=== PATIENT | female | born 1995 | race Caucasian/White ===

== ENCOUNTER 2017-12-10 09:10 | Day surgery (SDC) | payer OTHER ==
[~2017-12-10 09:10] MED LIST: BUPIVACAINE HCL 0.75% INJ/PF (7.5 MG/1 ML) 10 ML SDV OS PRN; CHONDR SU A NA/HYALUR INTRAOC KIT (SURGICARE) ONE; EPINEPHRINE INJ/PF 1 MG/1 ML AMPULE ONE; KETOROLAC TROMETHAMINE 0.45% 4 DROP/0.4 ML DROPERETTE OS PRN; LIDOCAINE 1% INJ-PF (10 MG/ML) 30 ML SDV ONE; LIDOCAINE 4% INJ/PF (40 MG/ML) 5 ML AMPUL OS PRN; TRYPAN BLUE 0.06 % OPH SOLN 0.5 ML DISP.SYRIN ONE
[2017-12-10] MEDS: TROPICAMIDE 1% OPH SOLN 3 ML OS PRN ×3 (09:19→09:48)
[2017-12-10] MEDS: CYCLOPENTOLATE 0.2%/PHENYLEPHRINE 1% OPH SOLN 2 ML OS PRN ×3 (09:19→09:48)
[2017-12-10] MEDS: BESIFLOXACIN HCL 0.6% OPH SUSP 5 ML BOTTLE OS PRN ×4 (09:20→10:15)
[2017-12-10] MEDS: TETRACAINE HCL 0.5% OPH SOLN 0.6 ML DROPERETTE OS PRN ×2 (09:21→09:48)
[2017-12-10] MEDS ORDERED: MIDAZOLAM 2 MG/2 ML INJ ONE ×2 (09:33→09:41)
[2017-12-10] MEDS ORDERED: FENTANYL CITRATE INJ/PF 100 MCG/2 ML AMPUL ONE (09:33)
[2017-12-10] MEDS ORDERED: ONDANSETRON HCL INJ/PF 4 MG/2 ML SDV ONE (09:33)
--- NOTE | 2017-12-10 10:44 | [facility] OPERATIVE REPORT E ---
[facility] Operative Report NAME: ROLLY CALVERT AGE: 22Y DATE OF SURGERY: 12/10/2017 ROOM: PREOPERATIVE DIAGNOSIS: Cataract, left eye. POSTOPERATIVE DIAGNOSIS: Cataract, left eye. PROCEDURE PERFORMED: Phacoemulsification with posterior chamber intraocular lens, left eye. SURGEON: NALLELY PARSON M.D. ANESTHESIA: Topical with MAC. INDICATIONS FOR SURGERY: Difficulty reading road signs and difficulty with night driving. Best corrected visual acuity 20/60. PROCEDURE: The patient was brought to the Operating Room and placed on the operative table. Following tetracaine drops, topical anesthesia was administered. This consisted of instrument wipe pledgets soaked in a solution of 4% Xylocaine mixed with 0.75% Marcaine in a 1:2 ratio. A 2 x 1 cm pledget was placed in the superior fornix. A 1 x 1 cm pledget was placed in the inferior fornix. The eye was patched shut for 5 minutes. The patch was removed. The eye was sterilely prepped and draped in the usual manner. Lid speculum was placed in the eye. The pledgets were removed. 4-0 black silk sutures were placed around the superior and the inferior rectus muscles to be used as traction. A conjunctival peritomy was made at the 10 o'clock position. Hemostasis was obtained with bipolar cautery. A posterior limbal groove was created using a crescent knife and dissected anteriorly towards the cornea. A sharp point blade was used to create a paracentesis site at the 2 o'clock position. A 2.4 mm keratome was used to enter the anterior chamber through the groove. Viscoelastic was injected into the anterior chamber. An anterior capsulotomy was performed using Utrata forceps in a capsulorrhexis fashion. Hydrodissection and hydrodelineation were performed. Phacoemulsification was performed in [id number] technique. A total of 0.68 CDE phaco time was used. Following this, the I/A unit was used to remove residual cortex. Viscoelastic was injected into the capsular bag. Intraocular lens model ZCB00, 18 diopters, serial number [id number] was placed in the capsular bag. The I/A unit was used to remove residual viscoelastic. The wound was seen to be watertight under high and low pressure, and no sutures were placed. The intraocular lens was well centered. The pressure was adjusted in the eye to normal pressure. The 4-0 black silk sutures and lid speculum were removed. The eye was shielded after Besivance drops were placed. The patient tolerated the procedure well and was sent to the Recovery Room in good condition. Following the incision, a syringe with dye was injected into the anterior chamber with an air bubble being placed prior to this. DICTATING PHYSICIAN: NALLELY PARSON M.D. [id number] PHY#: [id number] ID: [id number] JOB#: [id number] ACCT: [id number] cc:NALLELY PARSON M.D. >
--- NOTE | 2017-12-10 10:45 | [facility] DISCHARGE SUMMARY E ---
[facility] Discharge Summary NAME: ROLLY CALVERT AGE: 22Y ADMITTED: 12/10/2017 DISCHARGED: 12/10/2017 HOSPITAL COURSE: The patient is a 22-year-old lady who underwent uneventful cataract extraction with intraocular lens implant left eye on 12/10/2017. She will be discharged to home. She is instructed to resume preoperative medications, take Tylenol as needed for discomfort, to keep her eye shielded, to use Besivance, Durezol, and Ilevro at 3 p.m. and 8 p.m., and to follow up in my office in 1 day. DICTATING PHYSICIAN: NLALELY PARSON M.D. [id number] PHY#: [id number] ID: [id number] JOB#: [id number] ACCT: [id number] cc:NALLELY PARSON M.D. >
== END 2017-12-10 10:58 | disposition home or self-care (01) ==
LOC: SC 09:10
PROVIDERS: ATTEND Ophthalmology
DX: H25.813 Combined forms of age-related cataract, bilateral (principal); E10.36 Type 1 diabetes mellitus with diabetic cataract; Z79.4 Long term (current) use of insulin; Z79.84 Long term (current) use of oral hypoglycemic drugs
CPT/HCPCS: 66984; 82962; V2632; J2250; J3490 ×5; J0171; J3010; J2405; 142

== ENCOUNTER 2019-11-15 07:53 | Day surgery (SDC) | payer BC, OTHER ==
[~2019-11-15 07:53] MED LIST changes: +BUPIVACAINE HCL 0.75% INJ/PF (7.5 MG/1 ML) 10 ML SDV OD PRN; -BUPIVACAINE HCL 0.75% INJ/PF (7.5 MG/1 ML) 10 ML SDV OS PRN; +KETOROLAC TROMETHAMINE 0.45% 4 DROP/0.4 ML DROPERETTE OD PRN; -KETOROLAC TROMETHAMINE 0.45% 4 DROP/0.4 ML DROPERETTE OS PRN; +LIDOCAINE 4% INJ/PF (40 MG/ML) 5 ML AMPUL OD PRN; -LIDOCAINE 4% INJ/PF (40 MG/ML) 5 ML AMPUL OS PRN; -TRYPAN BLUE 0.06 % OPH SOLN 0.5 ML DISP.SYRIN ONE
[2019-11-15] MEDS: TETRACAINE HCL 0.5% OPH SOLN 4 ML OD PRN ×3 (08:31→09:02)
[2019-11-15] MEDS: BESIFLOXACIN HCL 0.6% OPH SUSP 5 ML BOTTLE OD PRN ×4 (08:32→09:23)
[2019-11-15] MEDS: CYCLOPENTOLATE 0.2%/PHENYLEPHRINE 1% OPH SOLN 2 ML OD PRN ×3 (08:32→08:52)
[2019-11-15] MEDS: TROPICAMIDE 1% OPH SOLN 15 ML OD PRN ×3 (08:32→08:52)
[2019-11-15] MEDS ORDERED: MIDAZOLAM 2 MG/2 ML INJ ONE (08:34)
[2019-11-15] MEDS ORDERED: FENTANYL CITRATE INJ/PF 100 MCG/2 ML AMPUL ONE (08:35)
[2019-11-15] MEDS: DORZOLAMIDE HCL 2%/TIMOLOL MALEAT 0.5% OPH SOLN 10 ML OD PRN ×2 (09:23)
--- NOTE | 2019-11-15 09:31 | Operative Report ---
Operative Report-[facility] Operative Report: DATE OF SURGERY: 11/15/2019 PREOPERATIVE DIAGNOSIS: CATARACT, RIGHT EYE. POSTOPERATIVE DIAGNOSIS: CATARACT, RIGHT EYE. PROCEDURE PERFORMED: PHACOEMULSIFICATION WITH POSTERIOR CHAMBER INTRAOCULAR LENS, RIGHT EYE. Intraocular Lens Model : ZCBOO 20.5 Total Phaco Time: 13 seconds SURGEON: NALLELY PARSON MD ANESTHESIA: TOPICAL WITH MAC. INDICATIONS FOR SURGERY:Difficulty reading words on TV and glare. PROCEDURE: The patient was brought to the Operating Room and placed on the operative table. Following tetracaine drops, topical anesthesia was administered. This consisted of instrument wipe pledgets soaked in a solution of 4% Xylocaine mixed with 0.75% Marcaine in a 1:2 ratio. A 2 x 1 cm pledget was placed in the superior fornix. A 1 x 1 cm pledget was placed in the inferior fornix. The eye was patched shut for 5 minutes. The patch was removed. The eye was sterilely prepped and draped in the usual manner. Lid speculum was placed in the eye. The pledgets were removed. 4-0 black silk sutures were placed around the superior and the inferior rectus muscles to be used as traction. A conjunctival peritomy was made at the 10 o'clock position. Hemostasis was obtained with bipolar cautery. A posterior limbal groove was created using a crescent knife and dissected anteriorly towards the cornea. A sharp point blade was used to create a paracentesis site at the 2 o'clock position. 0.2 cc non preserved Lidocaine was injected into the anterior chamber. A 2.4 mm keratome was used to enter the anterior chamber through the groove. Viscoelastic was injected into the anterior chamber. An anterior capsulotomy was performed using Utrata forceps in a capsulorrhexis fashion. Hydrodissection and hydrodelineation were performed. Phacoemulsification was performed in [id number] technique. Following this, the I/A unit was used to remove residual cortex. Viscoelastic was injected into the capsular bag. The Intraocular lens was placed in the capsular bag. The I/A unit was used to remove residual viscoelastic. The wound was seen to be watertight under high and low pressure, and no sutures were placed. The intraocular lens was well centered. The pressure was adjusted in the eye to normal pressure. The 4-0 black silk sutures and lid speculum were removed. The eye was shielded after Besivance. prednisolone, and Cosopt drops were placed. The patient tolerated the procedure well and was sent to the Recovery Room in good condition.
== END 2019-11-15 09:55 | disposition home or self-care (01) ==
LOC: SC 07:53
PROVIDERS: ATTEND Ophthalmology
DX: H25.11 Age-related nuclear cataract, right eye (principal); E10.9 Type 1 diabetes mellitus without complications; Z79.4 Long term (current) use of insulin
CPT/HCPCS: 66984; 82962; V2632; J2250; J3490 ×6; J0171; J3010; 142

== ENCOUNTER 2020-05-04 09:12 | Inpatient (IN) | payer BC ==
[2020-05-04 10:27] LABS: ABSOLUTE BASOPHILS # (AUTO) 0.1 10^3/uL (0.0-0.2); ABSOLUTE MONOCYTES (AUTO) 0.4 10^3/uL (0.1-1.4); ABSOLUTE NEUT (AUTO) 7.7 10^3/uL (1.7-8.2); BASOPHILS % (AUTO) 0.6 % (0-2); EOSINOPHILS % (AUTO) 0.1 % (0-6); HEMATOCRIT 49.8 % (36.0-47.0); HEMOGLOBIN 16.8 g/dL (12.0-15.5); LYMPHOCYTES % (AUTO) 10.7 % (13-45); MEAN CORPUSCULAR HEMOGLOBIN 32.3 pg (27.0-33.4); MEAN CORPUSCULAR HGB CONC 33.7 g/dL (32.0-36.0); MEAN CORPUSCULAR VOLUME 96 fl (80-97); MONOCYTES % (AUTO) 4.7 % (3-13); PLATELET COUNT 305 10^3/uL (150-450); RED CELL DISTRIBUTION WIDTH 13.4 % (11.5-14.0); SEGMENTED NEUTROPHILS % (AUTO) 83.9 % (42-78); TOTAL CELLS COUNTED % (AUTO) 100 %; WHITE BLOOD COUNT 9.2 10^3/uL (4.0-10.5)
[2020-05-04 10:30] LABS: APPEARANCE,URINE SLIGHTLY-CLOUDY; BILIRUBIN,URINE NEGATIVE (NEGATIVE); COLOR,URINE YELLOW; GLUCOSE, URINE >=500 mg/dL (NEGATIVE); KETONES,URINE 80 mg/dL (NEGATIVE); LEUKOCYTE ESTERASE,URINE TRACE (NEGATIVE); NITRITE,URINE NEGATIVE (NEGATIVE); PROTEIN,URINE 100 mg/dL (NEGATIVE); URINE SPECIFIC GRAVITY 1.025; UROBILINOGEN,URINE NEGATIVE mg/dL (<2.0)
[2020-05-04 10:41] LABS: VENOUS BLOOD BASE EXCESS -23.7 mmol/L; VENOUS BLOOD HCO3 6.7 mmol/L (20-32); VENOUS BLOOD PCO2 28.5 mmHg (35-63)
[2020-05-04 10:42] LABS: VENOUS BLOOD PH 6.99 (7.30-7.42)
[2020-05-04 10:43] LABS: ALBUMIN 5.7 g/dL (3.5-5.0); ALKALINE PHOSPHATASE 116 U/L (38-126); ASPARTATE AMINO TRANSFERASE 28 U/L (14-36); BILIRUBIN,DIRECT 0.5 mg/dL (0.0-0.4); BILIRUBIN,TOTAL 0.6 mg/dL (0.2-1.3); BLOOD UREA NITROGEN 15 mg/dL (7-20); CALCIUM 10.4 mg/dL (8.4-10.2); CHLORIDE 102 mmol/L (98-107); POTASSIUM 5.2 mmol/L (3.6-5.0); TOTAL PROTEIN 10.1 g/dL (6.3-8.2)
[2020-05-04] MEDS ORDERED: NORMAL SALINE 1000 ML 1,000 ML IV ONE ×2 (10:49→11:27)
[2020-05-04] MEDS ORDERED: ONDANSETRON HCL INJ/PF 4 MG/2 ML SDV IV ONE (10:49)
--- NOTE | 2020-05-04 10:50 | ER Document Report ---
ED GI/ - General Chief Complaint: Vomiting Stated Complaint: VOMITING Time Seen by Provider: 05/04/20 10:10 Mode of Arrival: Ambulatory Information source: Patient Notes: 24-year-old female presents to the emergency department history of diabetes mellitus, insulin-dependent. Apparently has developed vomiting during the evening last night. She also complains of some congestion and sore throat. She denies fever, symptoms limited to nausea and no diarrhea. She has had poor control of diabetes with blood sugars running in the 300 range most of the time going to the patient. TRAVEL OUTSIDE OF THE [place] IN LAST 30 DAYS: No - Related Data Allergies/Adverse Reactions: No Known Allergies Allergy (Verified 11/14/19 08:42) Past Medical History - General Information source: Patient - Social History Smoking Status: Unknown if Ever Smoked Family History: Reviewed & Not Pertinent - Past Medical History Cardiac Medical History: Denies: Hx Heart Attack, Hx Hypertension Pulmonary Medical History: Denies: Hx Asthma Neurological Medical History: Denies: Hx Cerebrovascular Accident, Hx Seizures GI Medical History: Denies: Hx Hepatitis, Hx Hiatal Hernia, Hx Ulcer Infectious Medical History: Denies: Hx Hepatitis Past Surgical History: Denies: Hx Hysterectomy, Hx Mastectomy, Hx Open Heart Surgery, Hx Pacemaker Review of Systems - Review of Systems Notes: Constitutional: generalized weakness HENT: +sore throat. Eyes: Negative for visual changes. Cardiovascular: Negative for chest pain. Respiratory: Negative for shortness of breath. Gastrointestinal: + nausea and vomiting Genitourinary: Negative for dysuria. Musculoskeletal: Negative for back pain. Skin: Negative for rash. Neurological: Negative for headaches, weakness or numbness. 10 point ROS negative except as marked above and in HPI. Physical Exam - Vital signs Vitals: Temp Pulse Resp BP Pulse Ox 97.7 F 116 H 16 108/77 100 05/04/20 09:19 05/04/20 09:19 05/04/20 09:19 05/04/20 09:19 05/04/20 09:19 - Notes Notes: PHYSICAL EXAMINATION: Physical Exam: General: Well-nourished ukxc-rcewwemfq-vijv-old female in no acute distress HEENT: NC/AT, pupils equal round and reactive to light, MM moist,nares clear, oropharynx clear, airway patent Neck: supple, no adenopathy, no masses. Good range of motion Lungs: clear, no wheezing, no rales no rhonchi CVS: Regular rate and rhythm no murmur gallop or rub Abdomen: Soft, active, nontender, no masses, no hepatosplenomegaly Ext: No edema, clubbing or cyanosis. Neuro: Alert and responsive, moving all 4 extremities on command, cranial nerves intact, no focal findings Skin: Intact no open lesions, no rash Course - Re-evaluation Re-evalutation: 05/04/20 21:01 Patient was found to be in diabetic ketoacidosis, the lacquer sprayer was contacted and will admit the patient to the ICU for further treatment. IV fluids normal saline bolus 2 L, insulin drip are ordered in the emergency department. I discussed with the patient the need to be admitted to the hospital and she is in agreement with that plan. - Vital Signs Vital signs: Temp Pulse Resp BP Pulse Ox 98.4 F 93 14 101/71 100 05/04/20 19:37 05/04/20 18:00 05/04/20 18:01 05/04/20 18:00 05/04/20 18:01 - Laboratory Result Diagrams: 05/04/20 10:09 05/04/20 19:30 Laboratory results interpreted by me: 05/04/20 05/04/20 05/04/20 10:09 10:09 10:09 Hgb 16.8 H Hct 49.8 H Lymph % (Auto) 10.7 L Seg Neutrophils % 83.9 H VBG pH VBG pCO2 VBG HCO3 Potassium 5.2 H Carbon Dioxide < 5 L* Glucose 405 H* Hemoglobin A1c % Calcium 10.4 H Direct Bilirubin 0.5 H Total Protein 10.1 H Albumin 5.7 H Urine Protein 100 H Urine Glucose (UA) >=500 H Urine Ketones 80 H Urine Blood SMALL H Ur Leukocyte Esterase TRACE H 05/04/20 05/04/20 10:09 10:09 Hgb Hct Lymph % (Auto) Seg Neutrophils % VBG pH 6.99 L* VBG pCO2 28.5 L VBG HCO3 6.7 L Potassium Carbon Dioxide Glucose Hemoglobin A1c % > 14.0 H Calcium Direct Bilirubin Total Protein Albumin Urine Protein Urine Glucose (UA) Urine Ketones Urine Blood Ur Leukocyte Esterase - Diagnostic Test Radiology reviewed: Image reviewed, Reports reviewed Radiology results interpreted by me: 05/04/20 21:03 Chest X-Ray 05/04/20 11:15 IMPRESSION: NO ACUTE RADIOGRAPHIC FINDING IN THE CHEST. - EKG Interpretation by Ms Rate: Tachycardia - EKG interpreted by Dr. Fox: Sinus tachycardia, [id number], DE 156 ms, QT interval 252 ms, normal axis, borderline prolonged QT interval, no acute ST or T wave abnormalities, no ischemic findings, there is no prior EKG to compare. Critical Care Note - Critical Care Note Total time excluding time spent on procedures (mins): 60 - Critical care time spent obtaining history from patient or surrogate, discussions with consultants, development of treatment plan with patient or surrogate, evaluation of patient's response to treatment, examination of patient, ordering and performing treatments and interventions, ordering and review of laboratory studies, re- evaluation of patient's condition, ordering and review of radiographic studies and review of old charts Discharge - Discharge Clinical Impression: Dehydration, Hyperkalemia Diabetic ketoacidosis Qualifiers: Diabetes mellitus type: type 1 Diabetes mellitus complication detail: without coma Qualified Code(s): E10.10 - Type 1 diabetes mellitus with ketoacidosis without coma Condition: Good Disposition: ADMITTED INPATIENT Admitting Provider: Toby (Materials Scheduler) Unit Admitted: ICU
[2020-05-04 10:57] LABS: CARBON DIOXIDE < 5 mmol/L (22-30); GLUCOSE 405 mg/dL (75-110)
[2020-05-04] MEDS ORDERED: NORMAL SALINE 100 ML with INSULIN REGULAR, HUMAN 100 UNIT IV PRN ×4 (11:18→12:05)
[2020-05-04] MEDS ORDERED: GLUCAGON,HUMAN RECOMB 1 MG INJ IM PRN ×2 (11:18→12:30)
[2020-05-04] MEDS ORDERED: DEXTROSE 40% GEL 15 GM TUBE PO PRN ×3 (11:18→12:30)
[2020-05-04] MEDS ORDERED: ACETAMINOPHEN 325 MG TABLET PO ONE (11:18)
[2020-05-04] MEDS ORDERED: DEXTROSE 50%-WATER 25 GM/50 ML DISP.SYRIN IV PRN ×2 (11:18)
[2020-05-04] MEDS ORDERED: INSULIN REG, HUMAN 100 UNIT/ML 3 ML VIAL (PYX) IV ONE (11:22)
--- NOTE | 2020-05-04 11:35 | RADIOLOGY REPORT (SQ) ---
EXAM DESCRIPTION: CHEST SINGLE VIEW IMAGES COMPLETED DATE/TIME: 05/04/2020 11:27 am REASON FOR STUDY: DKA COMPARISON: None. EXAM PARAMETERS: NUMBER OF VIEWS: One view. TECHNIQUE: Single frontal radiographic view of the chest acquired. RADIATION DOSE: NA LIMITATIONS: None. FINDINGS: LUNGS AND PLEURA: No opacities, masses or pneumothorax. No pleural effusion. MEDIASTINUM AND HILAR STRUCTURES: No masses. Contour normal. HEART AND VASCULAR STRUCTURES: Heart normal in size. Normal vasculature. BONES: No acute findings. HARDWARE: None in the chest. OTHER: No other significant finding. IMPRESSION: NO ACUTE RADIOGRAPHIC FINDING IN THE CHEST. TECHNICAL DOCUMENTATION: JOB ID: [id number] 2010 [employer]- All Rights Reserved Reading location - IP/workstation name: [email or web address]
[2020-05-04] MEDS ORDERED: NORMAL SALINE 1000 ML 1,000 ML IV PRN (12:03)
[2020-05-04] MEDS ORDERED: DEXTROSE 50%-WATER SYRINGE 12.5 GM/25 ML DOSE IV PRN (12:30)
[2020-05-04] MEDS ORDERED: DEXTROSE 40% GEL 15 GM TUBE X 2 PO PRN (12:30)
[2020-05-04] MEDS ORDERED: DEXTROSE 50%-WATER SYRINGE 25 GM/50 ML DOSE IV PRN (12:30)
[2020-05-04 12:56] LABS: A TYPE INFLUENZA AG NEGATIVE (NEGATIVE); B INFLUENZA AG NEGATIVE (NEGATIVE)
[2020-05-04 13:52] LABS: URINE AMPHETAMINES SCREEN NEGATIVE; URINE BARBITURATES SCREEN NEGATIVE; URINE BENZODIAZEPINES SCREEN NEGATIVE; URINE COCAINE SCREEN NEGATIVE; URINE MARIJUANA (THC) SCREEN NEGATIVE; URINE METHADONE SCREEN NEGATIVE; URINE PHENCYCLIDINE SCREEN NEGATIVE
[2020-05-04] MEDS: HEPARIN SOD (PORCINE) 5,000 UNIT/ML 1 ML VIAL SUBCUT SCH ×2 (14:59→22:33)
[2020-05-04 15:27] LABS: ALBUMIN 4.3 g/dL (3.5-5.0); ALKALINE PHOSPHATASE 82 U/L (38-126); ASPARTATE AMINO TRANSFERASE 24 U/L (14-36); BILIRUBIN,DIRECT 0.4 mg/dL (0.0-0.4); BILIRUBIN,TOTAL 0.4 mg/dL (0.2-1.3); TOTAL PROTEIN 7.3 g/dL (6.3-8.2)
--- NOTE | 2020-05-04 16:12 | EKG REPORT ---
SEVERITY:- BORDERLINE ECG - SINUS TACHYCARDIA BORDERLINE PROLONGED QT INTERVAL : Confirmed by: Justin Martínez MD 04-May-2020 16:11:56
[2020-05-04] MEDS: ACETAMINOPHEN 325 MG TABLET PO PRN ×2 (16:31→19:46)
[2020-05-04 17:08] LABS: BLOOD UREA NITROGEN 11 mg/dL (7-20); CALCIUM 8.5 mg/dL (8.4-10.2); CHLORIDE 110 mmol/L (98-107); GLUCOSE 202 mg/dL (75-110); POTASSIUM 4.4 mmol/L (3.6-5.0)
[2020-05-04 17:25] LABS: CARBON DIOXIDE < 5 mmol/L (22-30)
[2020-05-04] MEDS: POTASSI CL 20 MEQ/D5-1/2NS 1L 1,000 ML IV PRN ×2 (18:02→22:34)
--- NOTE | 2020-05-04 19:28 | CRITICAL CARE ADMISSION REPORT ---
HPI Date:: 05/04/20 Time:: 12:08 Reason for ICU Reason:: Diabetic ketoacidosis Admission Date/Time & PCP: Admission Date/Time: Primary Care Provider: ZINA WITT HPI: This 24-year-old female non-smoker with type 1 diabetes presents to the emergency department with complaints of acute onset severe nausea and vomiting and dehydration. She is a type I diabetic, who reports adherence to prescribed therapy. On the other hand, she reports that she has had a long history of having difficulties with getting her sugars under control. They tend to run high. She denies any known sick contacts. 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 Denies fever, chills. She denies cough or sputum production. She de nies shortness of breath. She does endorse tachycardia and exertional dyspnea, however. In the emergency department, laboratory evaluation was compatible with diabetic ketoacidosis. History obtained from:: Patient - Diagnosis/Plan (1) Diabetic ketoacidosis Qualifiers: Diabetes mellitus type: type 1 Diabetes mellitus complication detail: without coma Qualified Code(s): E10.10 - Type 1 diabetes mellitus with ketoacidosis without coma Is this a current diagnosis for this admission?: Yes Plan: IV fluids start with normal saline at 250 mL/h). Serial BMP, magnesium, phosphorus. Check lipase. Insulin infusion. Every hour Accu-Cheks. Hold home diabetes regimen. (2) Refractory nausea and vomiting Is this a current diagnosis for this admission?: Yes Plan: Zofran as needed (3) Dehydration Is this a current diagnosis for this admission?: Yes (4) Hyperkalemia Is this a current diagnosis for this admission?: Yes Past Medical History Cardiac Medical History: Denies: Myocardial Infarction, Hypertension Pulmonary Medical History: Denies: Asthma Neurological Medical History: Denies: Seizures Endocrine Medical History: Reports: Diabetes Mellitus Type 1 GI Medical History: Denies: Hepatitis, Hiatal Hernia Hematology: Reports: Anemia Denies: Sickle Cell Disease Past Surgical History Past Surgical History: Denies: Amputation, Hysterectomy, Mastectomy, Pacemaker Social/Family History - Social History Smoking Status: Never Smoker - Medication/Allergies Home Medications: Insulin Degludec [Tresiba Flextouch U-100] 30 unit SQ QAM 12/09/17 Liraglutide [Saxenda] 1.2 mg SQ DAILY 11/14/19 Insulin Lispro-Aabc [Lyumjev Kwikpen U-200] 0 unit SQ .SLIDING SCALE 05/04/20 Allergies/Adverse Reactions: No Known Allergies Allergy (Verified 11/14/19 08:42) Review of Systems Constitutional: ABSENT: chills, fever(s), headache(s), weight gain, weight loss Eyes: ABSENT: visual disturbances Ears: ABSENT: hearing changes Cardiovascular: ABSENT: chest pain, dyspnea on exertion, edema, orthropnea, palpitations Respiratory: ABSENT: cough, hemoptysis Gastrointestinal: ABSENT: abdominal pain, constipation, diarrhea, hematemesis, hematochezia, nausea, vomiting Genitourinary: ABSENT: dysuria, hematuria Musculoskeletal: ABSENT: joint swelling Integumentary: ABSENT: rash, wounds Neurological: ABSENT: abnormal gait, abnormal speech, confusion, dizziness, focal weakness, syncope Psychiatric: ABSENT: anxiety, depression, homidical ideation, suicidal ideation Endocrine: PRESENT: polydipsia, polyuria. ABSENT: cold intolerance, heat intolerance, menstrual abnormalities Hematologic/Lymphatic: ABSENT: easy bleeding, easy bruising Physical Exam Vital Signs: Temp Pulse Resp BP Pulse Ox 97.7 F 116 H 16 108/77 100 05/04/20 09:19 05/04/20 09:19 05/04/20 09:19 05/04/20 09:19 05/04/20 09:19 Intake & Output 05/03/20 05/04/20 05/05/20 06:59 06:59 06:59 Intake Total 1000 Balance 1000 Weight 59.874 kg Weight/Height Weight 59.874 kg Height 1.63 m General appearance: PRESENT: no acute distress, well-developed, well-nourished Head exam: PRESENT: atraumatic, normocephalic Eye exam: PRESENT: conjunctiva pink, EOMI, PERRLA. ABSENT: scleral icterus Ear exam: PRESENT: bleeding Mouth exam: PRESENT: dry mucosa, tongue midline Neck exam: ABSENT: carotid bruit, JVD, lymphadenopathy, thyromegaly Respiratory exam: PRESENT: clear to auscultation sophia. ABSENT: rales, rhonchi, wheezes Cardiovascular exam: PRESENT: RRR. ABSENT: diastolic murmur, rubs, systolic murmur Pulses: PRESENT: normal dorsalis pedis pul Vascular exam: PRESENT: normal capillary refill GI/Abdominal exam: PRESENT: normal bowel sounds, soft. ABSENT: distended, guarding, mass, organolmegaly, rebound, tenderness Rectal exam: PRESENT: deferred Extremities exam: PRESENT: full ROM. ABSENT: calf tenderness, clubbing, pedal edema Neurological exam: PRESENT: alert, awake, oriented to person, oriented to place, oriented to time, oriented to situation, CN II-XII grossly intact. ABSENT: motor sensory deficit Psychiatric exam: PRESENT: appropriate affect, normal mood. ABSENT: homicidal ideation, suicidal ideation Skin exam: PRESENT: dry, intact, warm, other - Tattoos. ABSENT: cyanosis, rash Laboratory/Radiographs Laboratory Results: 05/04/20 10:09 05/04/20 10:09 05/04/20 05/04/20 05/04/20 10:09 10:09 10:09 WBC 9.2 RBC 5.20 Hgb 16.8 H Hct 49.8 H MCV 96 MCH 32.3 MCHC 33.7 RDW 13.4 Plt Count 305 Seg Neutrophils % 83.9 H VBG pH VBG pCO2 VBG HCO3 VBG Base Excess Sodium 142.2 Potassium 5.2 H Chloride 102 Carbon Dioxide < 5 L* Anion Gap Not Reportable BUN 15 Creatinine 1.06 Est GFR ( Amer) > 60 Glucose 405 H* Calcium 10.4 H Total Bilirubin 0.6 AST 28 Alkaline Phosphatase 116 Total Protein 10.1 H Albumin 5.7 H Urine Color YELLOW Urine Appearance SLIGHTLY-CLOUDY Urine pH 5.0 Ur Specific [place] 1.025 Urine Protein 100 H Urine Glucose (UA) >=500 H Urine Ketones 80 H Urine Blood SMALL H Urine Nitrite NEGATIVE Ur Leukocyte Esterase TRACE H Urine WBC (Auto) 5 Urine RBC (Auto) 3 05/04/20 10:09 WBC RBC Hgb Hct MCV MCH MCHC RDW Plt Count Seg Neutrophils % VBG pH 6.99 L* VBG pCO2 28.5 L VBG HCO3 6.7 L VBG Base Excess -23.7 Sodium Potassium Chloride Carbon Dioxide Anion Gap BUN Creatinine Est GFR ( Amer) Glucose Calcium Total Bilirubin AST Alkaline Phosphatase Total Protein Albumin Urine Color Urine Appearance Urine pH Ur Specific [place] Urine Protein Urine Glucose (UA) Urine Ketones Urine Blood Urine Nitrite Ur Leukocyte Esterase Urine WBC (Auto) Urine RBC (Auto) Impressions: Chest X-Ray 05/04/20 11:15 IMPRESSION: NO ACUTE RADIOGRAPHIC FINDING IN THE CHEST. All labs, radiographs, diagnostic studies and EKGs were personally reviewed: Yes In addition, reports of radiographic and diagnostic studies were read: Yes Critical Time Critical Time (minutes): 45 -: The care of a critically ill patient is dynamic. This note represents a static moment in the admission process. Orders and treatments may be given simultaneously and urgently, and time is not territory representative of the treatment process. This patient requires Critical Care secondary to life threatening organ or limb dysfunction. Without Critical Care services, the patient is at risk for increased mortality and morbidity.
[2020-05-04 19:57] LABS: BLOOD UREA NITROGEN 11 mg/dL (7-20); CALCIUM 8.3 mg/dL (8.4-10.2); CHLORIDE 110 mmol/L (98-107); GLUCOSE 220 mg/dL (75-110); POTASSIUM 4.4 mmol/L (3.6-5.0)
[2020-05-04 20:08] LABS: ANION GAP 20 (5-19)
[2020-05-04 20:09] LABS: CARBON DIOXIDE 7 mmol/L (22-30)
[2020-05-04] MEDS ORDERED: ONDANSETRON HCL INJ/PF 4 MG/2 ML SDV ONE (22:01)
[2020-05-04] MEDS: FAMOTIDINE INJ/PF 20 MG/2 ML SDV IV SCH (22:55)
[2020-05-04] MEDS ORDERED: ONDANSETRON HCL INJ/PF 4 MG/2 ML SDV IV PRN (23:15)
[2020-05-05] MEDS: POTASSI CL 20 MEQ/D5-1/2NS 1L 1,000 ML IV PRN (02:45)
[2020-05-05 03:32] LABS: ANION GAP 7 (5-19); BLOOD UREA NITROGEN 10 mg/dL (7-20); CALCIUM 8.3 mg/dL (8.4-10.2); CARBON DIOXIDE 15 mmol/L (22-30); CHLORIDE 114 mmol/L (98-107); GLUCOSE 185 mg/dL (75-110); POTASSIUM 3.9 mmol/L (3.6-5.0)
[2020-05-05] MEDS ORDERED: GLUCAGON,HUMAN RECOMB 1 MG INJ IM PRN (04:51)
[2020-05-05] MEDS ORDERED: DEXTROSE 40% GEL 15 GM TUBE PO PRN ×2 (04:51)
[2020-05-05] MEDS ORDERED: DEXTROSE 50%-WATER 25 GM/50 ML DISP.SYRIN IV PRN ×2 (04:51)
[2020-05-05] MEDS ORDERED: INSULIN GLARGINE,HUM.REC.ANLOG 1,000 UNIT/10 ML VIAL (PYX) SUBCUT ONE (05:15)
[2020-05-05] MEDS ORDERED: INSULIN LISPRO 100 UNIT/ML 3 ML VIAL SUBCUT SCH (06:00)
[2020-05-05] MEDS: HEPARIN SOD (PORCINE) 5,000 UNIT/ML 1 ML VIAL SUBCUT SCH ×3 (06:10→21:42)
[2020-05-05] MEDS: ACETAMINOPHEN 325 MG TABLET PO PRN ×2 (07:55→14:01)
[2020-05-05] MEDS ORDERED: INFLUENZA QUAD (6MOS+) 2020-21 VAC 0.5 ML SYR IM ONE (08:00)
[2020-05-05 08:29] LABS: ABSOLUTE MONOCYTES (AUTO) 0.7 10^3/uL (0.1-1.4); ABSOLUTE NEUT (AUTO) 3.1 10^3/uL (1.7-8.2); BASOPHILS % (AUTO) 0.4 % (0-2); EOSINOPHILS % (AUTO) 0.7 % (0-6); HEMATOCRIT 36.9 % (36.0-47.0); LYMPHOCYTES % (AUTO) 20.5 % (13-45); MEAN CORPUSCULAR HEMOGLOBIN 31.7 pg (27.0-33.4); MEAN CORPUSCULAR HGB CONC 34.9 g/dL (32.0-36.0); MONOCYTES % (AUTO) 13.7 % (3-13); PLATELET COUNT 192 10^3/uL (150-450); RED BLOOD COUNT 4.06 10^6/uL (3.72-5.28); RED CELL DISTRIBUTION WIDTH 13.1 % (11.5-14.0); SEGMENTED NEUTROPHILS % (AUTO) 64.7 % (42-78); TOTAL CELLS COUNTED % (AUTO) 100 %; WHITE BLOOD COUNT 4.8 10^3/uL (4.0-10.5)
[2020-05-05 08:30] LABS: HEMOGLOBIN 12.9 g/dL (12.0-15.5); MEAN CORPUSCULAR VOLUME 91 fl (80-97)
[2020-05-05 08:47] LABS: ANION GAP 8 (5-19); BLOOD UREA NITROGEN 10 mg/dL (7-20); CALCIUM 8.4 mg/dL (8.4-10.2); CARBON DIOXIDE 16 mmol/L (22-30); CHLORIDE 114 mmol/L (98-107); GLUCOSE 109 mg/dL (75-110); POTASSIUM 4.1 mmol/L (3.6-5.0)
[2020-05-05] MEDS: FAMOTIDINE INJ/PF 20 MG/2 ML SDV IV SCH ×2 (10:27→21:41)
--- NOTE | 2020-05-05 10:44 | PDOC CRITICAL CARE PROG REPORT ---
General Date:: 05/05/20 ICU Day:: 2 Hospital Day:: 2 Resuscitation Status: Full Code Events in the past 12 to 24 Hours:: This 24-year-old female with type 1 diabetes presented to the [facility] emergency department with complaints of occasions acute onset nausea and vomiting. Laboratory evaluation found that she was in DKA. Urine test was negative. She did endorse a sore throat. Rapid strep test was negative. Influenza A and B were negative. 05/05: Anion gap is closed. She is off her insulin infusion. Nausea has improved. No bouts of emesis. She complains of headache, relieved with Tylenol. Reason for ICU Addmission:: Diabetic ketoacidosis - Medications: Medications reviewed and adjusted accordingly: Yes Physical Exam Vital Signs: Temp Pulse Resp BP Pulse Ox 98.4 F 98 13 89/61 L 100 05/05/20 08:00 05/05/20 10:00 05/05/20 10:00 05/05/20 10:00 05/05/20 10:00 Intake & Output 05/04/20 05/05/20 05/06/20 06:59 06:59 06:59 Intake Total 4360 1001 Output Total 1400 0 Balance 2960 1001 Weight 63.4 kg Weight/Height Weight 63.4 kg Height 1.63 m General appearance: PRESENT: no acute distress, well-developed, well-nourished Head exam: PRESENT: atraumatic, normocephalic Eye exam: PRESENT: conjunctiva pink, EOMI, PERRLA. ABSENT: scleral icterus Mouth exam: PRESENT: moist, tongue midline Neck exam: ABSENT: carotid bruit, JVD, lymphadenopathy, thyromegaly Respiratory exam: PRESENT: clear to auscultation sophia. ABSENT: rales, rhonchi, wheezes Cardiovascular exam: PRESENT: RRR. ABSENT: diastolic murmur, rubs, systolic murmur Pulses: PRESENT: normal dorsalis pedis pul GI/Abdominal exam: PRESENT: normal bowel sounds, soft. ABSENT: distended, guarding, mass, organolmegaly, rebound, tenderness Extremities exam: PRESENT: full ROM. ABSENT: calf tenderness, clubbing, pedal edema Neurological exam: PRESENT: alert, awake, oriented to person, oriented to place, oriented to time, oriented to situation, CN II-XII grossly intact. ABSENT: motor sensory deficit Psychiatric exam: PRESENT: appropriate affect, normal mood. ABSENT: homicidal ideation, suicidal ideation Skin exam: PRESENT: dry, intact, warm. ABSENT: cyanosis, rash Laboratory/Radiographs Laboratory Results: 05/05/20 07:55 05/05/20 07:55 05/04/20 05/04/20 05/04/20 10:09 10:09 10:09 WBC RBC Hgb Hct MCV MCH MCHC RDW Plt Count Seg Neutrophils % VBG pH 6.99 L* VBG pCO2 28.5 L VBG HCO3 6.7 L VBG Base Excess -23.7 Sodium 142.2 Potassium 5.2 H Chloride 102 Carbon Dioxide < 5 L* Anion Gap Not Reportable BUN 15 Creatinine 1.06 Est GFR ( Amer) > 60 Glucose 405 H* Calcium 10.4 H Magnesium Total Bilirubin 0.6 AST 28 Alkaline Phosphatase 116 Total Protein 10.1 H Albumin 5.7 H Lipase TSH 0.70 05/04/20 05/04/20 05/04/20 10:09 14:48 16:36 WBC RBC Hgb Hct MCV MCH MCHC RDW Plt Count Seg Neutrophils % VBG pH VBG pCO2 VBG HCO3 VBG Base Excess Sodium 139.9 Potassium 4.4 Chloride 110 H Carbon Dioxide < 5 L* Anion Gap Not Reportable BUN 11 Creatinine 0.77 Est GFR ( Amer) > 60 Glucose 202 H Calcium 8.5 Magnesium 2.0 Total Bilirubin 0.4 AST 24 Alkaline Phosphatase 82 Total Protein 7.3 Albumin 4.3 Lipase 83.9 TSH 05/04/20 05/05/20 05/05/20 19:30 03:04 07:55 WBC RBC Hgb Hct MCV MCH MCHC RDW Plt Count Seg Neutrophils % VBG pH VBG pCO2 VBG HCO3 VBG Base Excess Sodium 137.1 135.5 L 137.9 Potassium 4.4 3.9 4.1 Chloride 110 H 114 H 114 H Carbon Dioxide 7 L* 15 L 16 L Anion Gap 20 H 7 8 BUN 11 10 10 Creatinine 0.76 0.58 0.64 Est GFR ( Amer) > 60 > 60 > 60 Glucose 220 H 185 H 109 Calcium 8.3 L 8.3 L 8.4 Magnesium 2.0 Total Bilirubin AST Alkaline Phosphatase Total Protein Albumin Lipase TSH 05/05/20 07:55 WBC 4.8 RBC 4.06 Hgb 12.9 D Hct 36.9 MCV 91 D MCH 31.7 MCHC 34.9 RDW 13.1 Plt Count 192 Seg Neutrophils % 64.7 VBG pH VBG pCO2 VBG HCO3 VBG Base Excess Sodium Potassium Chloride Carbon Dioxide Anion Gap BUN Creatinine Est GFR ( Amer) Glucose Calcium Magnesium Total Bilirubin AST Alkaline Phosphatase Total Protein Albumin Lipase TSH Impressions: Chest X-Ray 05/04/20 11:15 IMPRESSION: NO ACUTE RADIOGRAPHIC FINDING IN THE CHEST. All labs, radiographs, diagnostic studies and EKGs were personally reviewed: Yes In addition, reports of radiographic and diagnostic studies were read: Yes Assessment and Plan - Diagnosis (1) Diabetic ketoacidosis Qualifiers: Diabetes mellitus type: type 1 Diabetes mellitus complication detail: without coma Qualified Code(s): E10.10 - Type 1 diabetes mellitus with ketoacidosis without coma Is this a current diagnosis for this admission?: Yes Plan: * Resolved. * Currently on Lantus 20 units subcutaneously twice daily and lispro sliding scale. * Her home diabetes regimen includes: Tresiba 30 units subcutaneously daily, Saxenda (liraglutide) 1.2 mg subcutaneously daily, insulin lispro sliding scal e. (2) Refractory nausea and vomiting Is this a current diagnosis for this admission?: Yes Plan: Resolved. Start p.o. diet. (3) Dehydration Is this a current diagnosis for this admission?: Yes Plan: Improving (4) Hyperkalemia Is this a current diagnosis for this admission?: Yes Plan: Improved Plan Summary: Okay to transfer to floor from pulmonary standpoint. Critical Time Critical Time (minutes): 30 Level of Care: ICU -: 1. The care of a critical patient is a dynamic process. This note is a personal financial representative synopsis but static in nature. The timeframe for treatments given in order is not necessarily the actual time these treatments may have been done. 2. This patient requires critical care secondary to ongoing requirements for therapy not offered or safe outside the critical care environment. Transfer to a lower level of care will result in altered life or limb morbidity and mortality. 3. Multidisciplinary rounds completed. 4. ABCDE bundle addressed.
[2020-05-05 11:28] LABS: ANION GAP 12 (5-19); BLOOD UREA NITROGEN 11 mg/dL (7-20); CALCIUM 8.5 mg/dL (8.4-10.2); CARBON DIOXIDE 13 mmol/L (22-30); CHLORIDE 110 mmol/L (98-107); GLUCOSE 141 mg/dL (75-110); POTASSIUM 4.1 mmol/L (3.6-5.0)
[2020-05-05] MEDS: INSULIN LISPRO 100 UNIT/ML 3 ML VIAL SUBCUT SCH ×3 (11:37→21:42)
[2020-05-05] MEDS ORDERED: RINGERS SOLUTION,LACTATED 1,000 ML IV PRN (13:22)
[2020-05-05 17:44] LABS: ANION GAP 12 (5-19); BLOOD UREA NITROGEN 9 mg/dL (7-20); CALCIUM 8.5 mg/dL (8.4-10.2); CARBON DIOXIDE 14 mmol/L (22-30); CHLORIDE 108 mmol/L (98-107); GLUCOSE 149 mg/dL (75-110); POTASSIUM 3.7 mmol/L (3.6-5.0)
[2020-05-05] MEDS ORDERED: INSULIN GLARGINE,HUM.REC.ANLOG 1,000 UNIT/10 ML VIAL SUBCUT SCH (18:00)
[2020-05-05] MEDS ORDERED: NORMAL SALINE 1000 ML 1,000 ML IV PRN (18:04)
[2020-05-05] MEDS ORDERED: KETOROLAC TROMETHAMINE INJ/PF 30 MG/1 ML SDV IV ONE (18:15)
[2020-05-06] MEDS: HEPARIN SOD (PORCINE) 5,000 UNIT/ML 1 ML VIAL SUBCUT SCH (05:15)
[2020-05-06] MEDS ORDERED: INSULIN GLARGINE,HUM.REC.ANLOG 1,000 UNIT/10 ML VIAL SUBCUT SCH (08:00)
[2020-05-06] MEDS: INSULIN LISPRO 100 UNIT/ML 3 ML VIAL SUBCUT SCH ×2 (08:12→11:52)
[2020-05-06] MEDS: FAMOTIDINE INJ/PF 20 MG/2 ML SDV IV SCH (09:10)
[2020-05-06 09:46] LABS: ANION GAP 9 (5-19); BLOOD UREA NITROGEN 7 mg/dL (7-20); CARBON DIOXIDE 20 mmol/L (22-30); CHLORIDE 108 mmol/L (98-107); GLUCOSE 135 mg/dL (75-110); POTASSIUM 3.3 mmol/L (3.6-5.0)
[2020-05-06] MEDS ORDERED: POTASSIUM CHLORIDE 10 MEQ TABLET.ER PO ONE (12:00)
[2020-05-06 12:26] VITALS: BP 110/74
--- NOTE | 2020-05-06 18:35 | PDOC DISCHARGE SUMMARY ---
Impression - Admit/DC Date/PCP Admission Date/Primary Care Provider: 05/04/20 12:24 ZINA WITT Discharge Date: 05/06/20 - Discharge Diagnosis (1) Uncontrolled diabetes mellitus Is this a current diagnosis for this admission?: Yes (2) Dehydration Is this a current diagnosis for this admission?: Yes (3) Diabetic ketoacidosis Is this a current diagnosis for this admission?: Yes (4) Hyperkalemia Is this a current diagnosis for this admission?: Yes (5) Refractory nausea and vomiting Is this a current diagnosis for this admission?: Yes - Additional Information Resuscitation Status: Full Code Discharge Diet: Diabetic Discharge Activity: Activity As Tolerated, Balance Activity w/Rest Referrals: STEVEN MAYS PA [Primary Care Provider] - Follow up as needed Home Medications: Insulin Degludec [Tresiba Flextouch U-100] 30 unit SQ QAM 12/09/17 Liraglutide [Saxenda] 1.2 mg SQ DAILY 11/14/19 Insulin Lispro-Aabc [Lyumjev Kwikpen U-200] 0 unit SQ .SLIDING SCALE 05/04/20 Acetaminophen [Tylenol 325 mg Tablet] 650 mg PO Q4HP PRN tablet 05/06/20 History of Present Illiness History of Present Illness: Per H&P by Dr. Luis: This 24-year-old female non-smoker with type 1 diabetes presents to the emergency department with complaints of acute onset severe nausea and vomiting and dehydration. She is a type I diabetic, who reports adherence to prescribed therapy. On the other hand, she reports that she has had a long history of having difficulties with getting her sugars under control. They tend to run high. She denies any known sick contacts. 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 Denies fever, chills. She denies cough or sputum pr oduction. She denies shortness of breath. She does endorse tachycardia and exertional dyspnea, however. In the emergency department, laboratory evaluation was compatible with diabetic ketoacidosis. Hospital Course Hospital Course: The patient was admitted to the ICU for DKA and treated with standard care set of generous IV fluids, electrolyte replacement as indicated, and insulin drip. Once her anion gap closed, she was transitioned to subcutaneous insulin and advance to a consistent carb diet. She was then downgraded to the hospitalist service. Her bicarb remained low and so she was provided additional IV fluids overnight. On day of discharge, her anion gap remains closed, glucose well controlled, and bicarb improved to 20. She is tolerating 100% of her consistent carb diets without nausea. As her hospital benefit has been maximized, she is discharged to home in stable condition. She is instructed to follow-up with her primary care provider within 1 week. She is instructed to call Dr. Cunha, her established cork grinder, and to follow-up as instructed. Continue a consistent carb diet. Take insulin as prescribed. Drink plenty of fluids. Return to the emergency department, as needed, for concerning symptoms. Physical Exam Vital Signs: Temp Pulse Resp BP Pulse Ox 98.2 F 80 16 110/74 99 05/06/20 11:14 05/06/20 11:14 05/06/20 11:14 05/06/20 11:14 05/06/20 11:14 Intake & Output 05/05/20 05/06/20 05/07/20 06:59 06:59 06:59 Intake Total 4360 1481 920 Output Total 1400 0 Balance 2960 1481 920 Weight 63.4 kg 63.6 kg General appearance: PRESENT: no acute distress, cooperative, well-developed, w ell-nourished Head exam: PRESENT: atraumatic, normocephalic Eye exam: PRESENT: conjunctiva pink, EOMI, PERRLA. ABSENT: scleral icterus Mouth exam: PRESENT: moist, tongue midline Respiratory exam: PRESENT: clear to auscultation sophia, other - Room air. ABSENT: rales, rhonchi, wheezes Cardiovascular exam: PRESENT: RRR. ABSENT: diastolic murmur, rubs, systolic murmur Vascular exam: PRESENT: normal capillary refill GI/Abdominal exam: PRESENT: normal bowel sounds, soft. ABSENT: distended, guarding, mass, organolmegaly, rebound, tenderness Rectal exam: PRESENT: deferred Extremities exam: PRESENT: full ROM. ABSENT: calf tenderness, clubbing, pedal edema Musculoskeletal exam: PRESENT: ambulatory Neurological exam: PRESENT: alert, awake, oriented to person, oriented to place, oriented to time, oriented to situation, CN II-XII grossly intact. ABSENT: motor sensory deficit Psychiatric exam: PRESENT: appropriate affect, normal mood. ABSENT: homicidal ideation, suicidal ideation Skin exam: PRESENT: dry, intact, warm. ABSENT: cyanosis, rash Results Laboratory Results: WBC 4.8 10^3/uL (4.0-10.5) 05/05/20 07:55 RBC 4.06 10^6/uL (3.72-5.28) 05/05/20 07:55 Hgb 12.9 g/dL (12.0-15.5) D 05/05/20 07:55 Hct 36.9 % (36.0-47.0) 05/05/20 07:55 MCV 91 fl (80-97) D 05/05/20 07:55 MCH 31.7 pg (27.0-33.4) 05/05/20 07:55 MCHC 34.9 g/dL (32.0-36.0) 05/05/20 07:55 RDW 13.1 % (11.5-14.0) 05/05/20 07:55 Plt Count 192 10^3/uL (150-450) 05/05/20 07:55 Lymph % (Auto) 20.5 % (13-45) 05/05/20 07:55 [place] % (Auto) 13.7 % (3-13) H 05/05/20 07:55 Eos % (Auto) 0.7 % (0-6) 05/05/20 07:55 Baso % (Auto) 0.4 % (0-2) 05/05/20 07:55 Absolute Neuts (auto) 3.1 10^3/uL (1.7-8.2) 05/05/20 07:55 Absolute Lymphs (auto) 1.0 10^3/uL (0.5-4.7) 05/05/20 07:55 Absolute Monos (auto) 0.7 10^3/uL (0.1-1.4) 05/05/20 07:55 Absolute Eos (auto) 0.0 10^3/uL (0.0-0.6) 05/05/20 07:55 Absolute Basos (auto) 0.0 10^3/uL (0.0-0.2) 05/05/20 07:55 Seg Neutrophils % 64.7 % (42-78) 05/05/20 07:55 VBG pH 6.99 (7.30-7.42) L* 05/04/20 10:09 VBG pCO2 28.5 mmHg (35-63) L 05/04/20 10:09 VBG HCO3 6.7 mmol/L (20-32) L 05/04/20 10:09 VBG Base Excess -23.7 mmol/L 05/04/20 10:09 Sodium 137.3 mmol/L (137-145) 05/06/20 09:16 Potassium 3.3 mmol/L (3.6-5.0) L 05/06/20 09:16 Chloride 108 mmol/L (98-107) H 05/06/20 09:16 Carbon Dioxide 20 mmol/L (22-30) L 05/06/20 09:16 Anion Gap 9 (5-19) 05/06/20 09:16 BUN 7 mg/dL (7-20) 05/06/20 09:16 Creatinine 0.50 mg/dL (0.52-1.25) L 05/06/20 09:16 Est GFR ( Amer) > 60 (>60) 05/06/20 09:16 Est GFR (MDRD) Non-Af > 60 (>60) 05/06/20 09:16 Glucose 135 mg/dL (75-110) H 05/06/20 09:16 POC Glucose 166 mg/dL (70-110) H 05/06/20 11:13 Hemoglobin A1c % > 14.0 % (4.7-6.0) H 05/04/20 10:09 Calcium 8.0 mg/dL (8.4-10.2) L 05/06/20 09:16 Magnesium 2.0 mg/dL (1.6-2.3) 05/05/20 10:56 Total Bilirubin 0.4 mg/dL (0.2-1.3) 05/04/20 14:48 Direct Bilirubin 0.4 mg/dL (0.0-0.4) 05/04/20 14:48 Neonat Total Bilirubin Not Reportable 05/04/20 14:48 Neonat Direct Bilirubin Not Reportable 05/04/20 14:48 Neonat Indirect Bili Not Reportable 05/04/20 14:48 AST 24 U/L (14-36) 05/04/20 14:48 ALT 20 U/L (<35) 05/04/20 14:48 Alkaline Phosphatase 82 U/L (38-126) 05/04/20 14:48 Total Protein 7.3 g/dL (6.3-8.2) 05/04/20 14:48 Albumin 4.3 g/dL (3.5-5.0) 05/04/20 14:48 Lipase 83.9 U/L (23-300) 05/04/20 10:09 TSH 0.70 uIU/mL (0.47-4.68) 05/04/20 10:09 Urine Color YELLOW 05/04/20 10:09 Urine Appearance SLIGHTLY-CLOUDY 05/04/20 10:09 Urine pH 5.0 (5.0-9.0) 05/04/20 10:09 Ur Specific [place] 1.025 05/04/20 10:09 Urine Protein 100 mg/dL (NEGATIVE) H 05/04/20 10:09 Urine Glucose (UA) >=500 mg/dL (NEGATIVE) H 05/04/20 10:09 Urine Ketones 80 mg/dL (NEGATIVE) H 05/04/20 10:09 Urine Blood SMALL (NEGATIVE) H 05/04/20 10:09 Urine Nitrite NEGATIVE (NEGATIVE) 05/04/20 10:09 Urine Bilirubin NEGATIVE (NEGATIVE) 05/04/20 10:09 Urine Urobilinogen NEGATIVE mg/dL (<2.0) 05/04/20 10:09 Ur Leukocyte Esterase TRACE (NEGATIVE) H 05/04/20 10:09 Urine WBC (Auto) 5 /HPF 05/04/20 10:09 Urine RBC (Auto) 3 /HPF 05/04/20 10:09 U Hyaline Cast (Auto) 2 /LPF 05/04/20 10:09 Squamous Epi Cells Auto 5 /HPF 05/04/20 10:09 Urine Mucus (Auto) RARE /LPF 05/04/20 10:09 Urine Ascorbic Acid NEGATIVE (NEGATIVE) 05/04/20 10:09 Urine HCG, Qual NEGATIVE (NEGATIVE) 05/04/20 10:09 Urine Opiates Screen NEGATIVE 05/04/20 10:09 Urine Methadone Screen NEGATIVE 05/04/20 10:09 Ur Barbiturates Screen NEGATIVE 05/04/20 10:09 Ur Phencyclidine Scrn NEGATIVE 05/04/20 10:09 Ur Amphetamines Screen NEGATIVE 05/04/20 10:09 U Benzodiazepines Scrn NEGATIVE 05/04/20 10:09 Urine Cocaine Screen NEGATIVE 05/04/20 10:09 U Marijuana (THC) Screen NEGATIVE 05/04/20 10:09 Influenza A (Rapid) NEGATIVE (NEGATIVE) 05/04/20 11:55 Influenza B (Rapid) NEGATIVE (NEGATIVE) 05/04/20 11:55 Group A Strep Rapid NEGATIVE (NEGATIVE) 05/04/20 11:55 Impressions: Chest X-Ray 05/04/20 11:15 IMPRESSION: NO ACUTE RADIOGRAPHIC FINDING IN THE CHEST. Plan Plan of Treatment: Patient is discharged home in stable condition. She is advised follow-up with her primary care provider within 1 week. She is instructed to notify her cork grinder, Dr. Cunha, of her admission and to follow-up as instructed. Continue a consistent carb diet. Take insulin as prescribed. Drink plenty of fluids. Return to the emergency department, as needed, for concerning symptoms. Time Spent: Greater than 30 Minutes Stroke Is this a Stroke Patient?: No Acute Heart Failure Is this a Heart Failure Patient?: No
== END 2020-05-06 12:21 | disposition home or self-care (01) | DRG 639 ==
LOC: ER 09:12 → EH 12:24 → ICU 15:15 → 5 05-05 13:05
PROVIDERS: ADMIT Internal Medicine Critical Care Medicine; ATTEND Registered Nurse
DX: E10.10 Type 1 diabetes mellitus with ketoacidosis without coma (principal); Z20.828 Contact with and (suspected) exposure to other viral communicable diseases; E86.0 Dehydration; E87.5 Hyperkalemia; R11.2 Nausea with vomiting, unspecified; Z79.899 Other long term (current) drug therapy; Z79.4 Long term (current) use of insulin
CPT/HCPCS: 36415; 71045; 80048; 80053; 80307; 81001; 81025; 82010; 82803; 82962; 83036; 83690; 83735; 84443; 85025; 87040; 87070; 87086; 87088; 87804; 87880; 93005; 93010; 96361; 96374; 99285; 99291; J1644; J1815; J1885; J2405; J3480; J3490; J7030; J7050; J7120; S0028